=== PATIENT | male | born 1985 | race Caucasian/White ===

== ENCOUNTER 2022-01-13 05:35 | Emergency (ER) | payer BC ==
[~2022-01-13 05:35] MED LIST: IBU800 MG PO
[2022-01-13 06:35] LABS: HEMOGLOBIN 14.6 gm/dl (14.0-17.5); RED BLOOD COUNT 4.57 M/UL (4.20-5.50); WHITE BLOOD COUNT 4.2 K/UL (4.5-11.0)
[2022-01-13 12:55] LABS: BUN/CREATININE RATIO 9 (0-10)
[2022-01-13] MEDS ORDERED: PROTONIX40 MG PO (13:45)
[2022-01-13] MEDS ORDERED: ZOFRAN 4 MG TAB4 MG PO (13:45)
== END 2022-01-13 14:05 | disposition home or self-care (01) ==
LOC: ER1 05:35
PROVIDERS: Physician Assistant Medical
DX: R11.0 Nausea (principal); R10.13 Epigastric pain; Z88.0 Allergy status to penicillin
CPT/HCPCS: 80053; 81001; 83690; 85025; 96374; 96375; 99284; C9113; J2405; Q9967